=== PATIENT | female | born 1945 | race Hispanic/Latino ===

== ENCOUNTER → 2018-08-20 | Outpatient (CLI) | payer OTHER ==
[2018-08-20 09:13] LABS: HEMOGLOBIN A1C 6.2 % (4.0-6.0)
[2018-08-20 09:24] LABS: B-TYPE NATRIURETIC PEPTIDE 24 pg/mL (0-100)
[2018-08-20 09:27] LABS: ALBUMIN 3.8 g/dL (3.5-5.0); BILIRUBIN,TOTAL 0.4 mg/dL (0.2-1.0); CREATININE 0.7 mg/dL (0.5-1.5); POTASSIUM 4.7 mmol/L (3.5-5.1); THYROID STIMULATING HORMONE 4.33 uIU/mL (0.36-3.74); URIC ACID 4.6 mg/dL (2.6-7.2)
[2018-08-20 09:59] LABS: BASOPHILS % (AUTO) 1.3 % (0.0-5.0); HEMATOCRIT 41.1 % (36-48); LYMPHOCYTES % (AUTO) 43.3 % (21.0-51.0); MEAN CORPUSCULAR HEMOGLOBIN 29.4 pg (27.0-33.0); MEAN CORPUSCULAR HGB CONC 32.9 g/dL (32.0-36.0); MEAN CORPUSCULAR VOLUME 89.4 fL (79-99); MONOCYTES % (AUTO) 9.1 % (3.0-13.0); NEUTROPHILS % (AUTO) 42.3 % (40.0-77.0); NUCLEATED RED BLOOD CELLS 0.1 % (0.0-0.19); PLATELET COUNT (AUTO) 283 K/uL (130-400); RED BLOOD CELL COUNT(AUTO) 4.59 MIL/uL (4.00-5.50); RED CELL DISTRIBUTION WIDTH 13.8 % (11.0-15.5); WHITE BLOOD COUNT (AUTO) 4.7 K/uL (4.8-10.8)
== END | disposition home or self-care (01) ==
LOC: LAB 08-19 16:09
PROVIDERS: ATTEND Internal Medicine
DX: Z12.11 Encounter for screening for malignant neoplasm of colon (principal); Z13.1 Encounter for screening for diabetes mellitus; E03.9 Hypothyroidism, unspecified; E78.5 Hyperlipidemia, unspecified
CPT/HCPCS: 36415; 80053; 80061; 82043; 82270; 83036; 83880; 83970; 84443; 84550; 85025

== ENCOUNTER → 2021-08-22 | Outpatient (CLI) | payer OTHER | END | disposition home or self-care (01) | LOC: OIH 14:47 | PROVIDERS: ATTEND Internal Medicine | DX: M47.816 Spondylosis without myelopathy or radiculopathy, lumbar region (principal); M41.86 Other forms of scoliosis, lumbar region; M47.814 Spondylosis without myelopathy or radiculopathy, thoracic region; M85.88 Other specified disorders of bone density and structure, other site | CPT/HCPCS: 72070; 72100 ==